=== PATIENT | male | born 1975 | race Caucasian/White ===

== ENCOUNTER 2016-06-22 00:50 | Emergency (ER) | payer SELFPAY ==
[~2016-06-22] VITALS: Ht 170.2 cm; Wt 68.2 kg
[2016-06-22 01:39] VITALS: Ht 170.2 cm; Wt 68.2 kg
[2016-06-22 04:00] VITALS: BP 117/72; PULSE 79; RESP 15
--- NOTE | 2016-06-22 05:16 | ERD ---
ER Documentation Chief Complaint Date/Time DATE: 06/22/16 TIME: 05:12 Chief Complaint BIB RA 39, ETOH,found at 7-11 HPI This 48-year-old male was brought in by paramedics who found him sleeping in public in had the smell of alcohol on his breath. There were no signs of trauma the patient's vital signs were stable. Is moving and smiling but will not talk right now history is not possible. ROS Unobtainable Allergies Allergies: Coded Allergies: Unknown: Unable to obtain (Unverified , 06/22/16) PMhx/Soc Hx Alcohol Use: Yes (unable to obtain info) Smoking Status: Unknown if ever smoked Physical Exam Vitals Vital Signs Date Time Temp Pulse Resp B/P Pulse Ox O2 Delivery O2 Flow Rate FiO2 06/22/16 04:00 79 15 117/72 Room Air 06/22/16 01:39 96.9 88 18 135/83 92 06/22/16 01:36 87 18 135/83 94 Room Air Physical Exam Const: [] No distress, smells like alcohol Head: Atraumatic Eyes: Normal Conjunctiva ENT: Normal External Ears, Nose and Mouth. Neck: Full range of motion..~ No meningismus. Resp: Clear to auscultation bilaterally Cardio: Regular rate and rhythm, no murmurs Abd: Soft, non tender, non distended. Normal bowel sounds Skin: No petechiae or rashes Back: No midline or flank tenderness Ext: No cyanosis, or edema Neur: Awake and alert, will not answer orientation questions, does move all 4 extremities with purposeful movement, appears in toxic Psych: Normal Mood and Affect Procedures/MDM Patient slept for 2 hours before he woke up and was able to give a history. He said his name is manual will not give the last name because he does not want to. He wanted for 2 more hours when he was completely alert oriented ambulating and one to go home. He was clinically sober at this point. I counseled him on alcohol cessation at the bedside for several minutes. He laughed at me. He denies any trauma or pain. Discharging him with primary care follow-up and return precautions to the ER. Departure Diagnosis: Primary Impression: Alcoholic intoxication Condition: Stable Patient Instructions: Alcohol Intoxication Referrals: COMM[facility]ITY CLINICS YOU HAVE RECEIVED A MEDICAL SCREENING EXAM AND THE RESULTS INDICATE THAT YOU DO NOT HAVE A CONDITION THAT REQUIRES URGENT TREATMENT IN THE EMERGENCY DEPARTMENT. FURTHER EVALUATION AND TREATMENT OF YOUR CONDITION CAN WAIT UNTIL YOU ARE SEEN IN YOUR DOCTORS OFFICE WITHIN THE NEXT 1-2 DAYS. IT IS YOUR RESPONSIBILITY TO MAKE AN APPOINTMENT FOR FOLOW-UP CARE. IF YOU HAVE A PRIMARY DOCTOR --you should call your primary doctor and schedule an appointment IF YOU DO NOT HAVE A PRIMARY DOCTOR YOU CAN CALL OUR PHYSICIAN REFERRAL HOTLINE AT IF YOU CAN NOT AFFORD TO SEE A PHYSICIAN YOU CAN CHOSE FROM THE FOLLOWING [facility] CLINICS [facility] [address] [facility] [address] [facility] [facility] [address] [facility] [facility] [address] [facility] [address] [facility]. [facility]. [address] Additional Instructions: Llame al doctor MAANA y vlaentino meghana NUBIA PARA DENTRO DE 2-3 RODRIGUEZ.Dgale a la secretaria que nosotros le instruimos hacer esta nubia.Avise o llame si daniel condicin se empeora antes de la nubia. Regresa aqui si peor o no mejor. CONRAD RICH DO Jun 22, 2016 05:15
== END 2016-06-22 05:30 | disposition home or self-care (01) ==
LOC: E/R 00:50 → EDBD 00:50 → E/R 05:30
DX: F10.129 Alcohol abuse with intoxication, unspecified (principal); R40.2222 Coma scale, best verbal response, incomprehensible words, at arrival to emergency department
CPT/HCPCS: 99283

== ENCOUNTER 2018-02-10 01:01 | Emergency (ER) | END 2018-02-10 01:36 | disposition left against medical advice (07) ==